=== PATIENT | female | born 1975 | race African-American/Black ===

== ENCOUNTER 2021-06-18 15:56 | Emergency (ER) | payer OTHER ==
[~2021-06-18] VITALS: Ht 170.2 cm; Wt 66.0 kg
[2021-06-18] MEDS ORDERED: KETOROLAC 60MG/2ML VIAL IM ONE (16:30)
[2021-06-18 16:52] LABS: CLARITY URINE TURBID (CLEAR); COLOR URINE DARK YELLOW (YELLOW); KETONES URINE TRACE (NEGATIVE); LEUKOCYTE ESTERASE URINE 2+ (NEGATIVE); NITRITE URINE POSITIVE (NEGATIVE); OCCULT BLOOD URINE NEGATIVE (NEGATIVE); PROTEIN URINE 1+ (NEGATIVE); SPECIFIC GRAVITY URINE 1.038 (1.005-1.030)
[2021-06-18 16:53] VITALS: BP 142/87
[2021-06-18] MEDS ORDERED: CEPH250C2 MT (17:23)
== END 2021-06-18 17:33 | disposition home or self-care (01) ==
LOC: ER 15:56
DX: N39.0 Urinary tract infection, site not specified (principal); Z90.49 Acquired absence of other specified parts of digestive tract
CPT/HCPCS: 81003; 81025; 87086; 96372; 99283; J1885